=== PATIENT | male | born 1950 | race Caucasian/White ===

== ENCOUNTER 2018-07-24 07:42 | Day surgery (SDC) | payer MEDICARE ==
[2018-07-21 15:41] VITALS: BMI 28.6
[2018-07-24 08:01] LABS: Hemoglobin 15.5 g/dL (14.0-18.0); Mean Corpuscular HGB CONC 32.5 g/dL (32.0-36.0); Mean Corpuscular Hemoglobin 29.5 pg (27.0-31.0); Mean Corpuscular Volume 90.8 fL (78.0-98.0); Mean Platelet Volume 9.5 fL (7.4-10.4); Platelet Count 156 thou/uL (130-400); RBC Distribution Width 12.3 % (11.5-14.5); Red Blood Cell (RBC) Count 5.25 mill/uL (4.70-6.10); White Blood Cell (WBC) Count 13.9 thou/uL (4.8-10.8)
[2018-07-24 08:10] LABS: INR-International Normal Ratio 1.2; PTT 28.8 SEC (22.9-36.1); Prothrombin Time 15.1 SEC (12.0-14.7)
[2018-07-24] MEDS ORDERED: Fentanyl 100 MCG/2 ML VIAL ONE (09:42)
[2018-07-24] MEDS ORDERED: Midazolam HCl 2 mg/2 ml Vial ONE (09:42)
[2018-07-24] MEDS ORDERED: Sodium Bicarbonate 2.5 MEQ/5 ML VIAL ONE (09:43)
--- NOTE | 2018-07-24 13:12 | CT ---
NONCONTRAST ENHANCED CT GUIDED LIVER BIOPSY: History: 67-year-old male with multiple hepatic lesions. FINDINGS: Precontrast enhanced CT images demonstrate numerous hypodense lesions throughout the liver parenchyma . By MRI there are high density lesions in the left hepatic lobe. The overlying skin was prepped and draped in the usual sterile manner. A 1% Lidocaine solution was us ed to anesthetize the overlying soft tissues. A small dermatomy was made. An outer 17 gauge needle wa s placed into the left hepatic lobe. Four 18 gauge core biopsies obtained. Specimen sent to pathology . Initial microscopic evaluation suggested the presence of liver with adjacent areas of atypical cell s. Specimen given to pathology. Post biopsy gel foam pledget was introduced into the biopsy tract. No complications encountered durin g the course of the exam. IMPRESSION: Successful CT guided left hepatic lobe biopsy. POS: JOVON
[2018-07-24 14:37] VITALS: BP 119/79; TEMP 98.1
== END 2018-07-24 11:35 | disposition home or self-care (01) ==
LOC: ULT 07:42
PROVIDERS: ATTEND Radiology Neuroradiology
PROC: 0FB23ZX Excision of Left Lobe Liver, Percutaneous Approach, Diagnostic (ICD-10-PCS; principal; 2018-07-24)
DX: C22.7 Other specified carcinomas of liver (principal); I10 Essential (primary) hypertension; F20.9 Schizophrenia, unspecified; K22.70 Barrett's esophagus without dysplasia; E78.00 Pure hypercholesterolemia, unspecified; M19.90 Unspecified osteoarthritis, unspecified site; B19.20 Unspecified viral hepatitis C without hepatic coma; Z87.891 Personal history of nicotine dependence; Z79.899 Other long term (current) drug therapy; Z98.890 Other specified postprocedural states
CPT/HCPCS: 36415; 47000; 77012; 85027; 85610; 85730; 88307; 88333; 88334; 88341; 88342; J2250; J3010

== ENCOUNTER 2018-08-07 11:00 | Outpatient (CLI) | payer MEDICARE ==
[~2018-08-07 11:00] MED LIST: Iopamidol 370 76% 100 ML VIAL ONE
--- NOTE | 2018-08-07 14:17 | CT ---
CT CHEST WITH CONTRAST CT ABDOMEN AND PELVIS WITHOUT CONTRAST CT ABDOMEN AND PELVIS WITH CONTRAST: Date: 08/07/18 HISTORY: Metastatic adenocarcinoma. COMPARISON: MRI from 07/18/18. FINDINGS: A few tree-in-bud opacities posterior segment right upper lobe have an infectious appearance. 3.0 mm nodule posterior segment right upper lobe, series 6, image 36, and series 6, image 39. There is also a 3.0 mm nodule within the anterior segment right upper lobe, axial image 49. There is a 4.0 mm nodule in the anterior segment of right lower lobe, axial image 80. There is a 4.0 mm nodule in the posterior segment of the right lower lobe, axial image 85. There is a spiculated nod ule in the medial base of right lower lobe, axial image 94, measuring up to 1.0 cm. There is a 4.0 mm nodule in the medial basal left lower lobe, axial image 86. There is a 4.0 mm nodul e in the anterior segment of the left lower lobe, series 6, image 85. There is a 4.0 mm nodule in the superior segment of the left lower lobe, axial image 79. There is a 5.0 mm nodule in the superior li ngula, axial image 64. There is a 4.0 mm nodule in the anterior left upper lobe, axial image 26. There is a segmental embolus within the posterior base of right lower lobe. There are innumerable hep atic metastases. Index lesion hepatic segment 8 at the dome measures up to 2.7 cm, previously 1.0 cm. A second index lesion within hepatic segment IVb abutting the capsule measures 12.0 mm, previously 5 .0 mm. Soft tissue mass on the uncinate process measures up to 3.9 cm, previously up to 2.7 cm. This mass julien rrounds the superior mesenteric artery and abuts the base of the caudad margin of the celiac trunk. Gallbladder mildly distended. There are abnormal red hepatis lymph nodes, including a precaval lymp h node, which measures up to 1.6 cm, previously 1.2 cm. Spleen is mildly enlarged. Right renal cyst and left renal cysts are similar. Aortic contour is nonaneurysmal. No suspicious osteolytic or osteoblastic metastasis. IMPRESSION: 1. Right lower lobe segmental pulmonary embolus. 2. Interval enlargement of the pancreatic mass as described. 3. Increase in size of hepatic metastatic disease. 4. Innumerable small nodules throughout the lungs, largest in right lower lobe, medial basal segment , measuring 1.0 cm with spiculations, suggesting metastatic disease. Findings called to Jesus Angeles at 1158 hours on 08/07/18. CODE CR. POS: OSITO
== END 2018-08-07 11:01 | disposition home or self-care (01) ==
LOC: BICCT 11:00
PROVIDERS: ATTEND Internal Medicine Hematology & Oncology
DX: C25.7 Malignant neoplasm of other parts of pancreas (principal); C78.7 Secondary malignant neoplasm of liver and intrahepatic bile duct; I26.99 Other pulmonary embolism without acute cor pulmonale; R91.8 Other nonspecific abnormal finding of lung field; K86.9 Disease of pancreas, unspecified
CPT/HCPCS: 71260; 74178; 82565

== ENCOUNTER 2018-08-07 12:05 | Outpatient (CLI) | payer MEDICARE ==
[2018-08-07 13:44] LABS: Hemoglobin 15.7 g/dL (14.0-18.0); Mean Corpuscular HGB CONC 32.1 g/dL (32.0-36.0); Mean Corpuscular Hemoglobin 29.7 pg (27.0-31.0); Mean Corpuscular Volume 92.5 fL (78.0-98.0); Platelet Count 131 thou/uL (130-400); RBC Distribution Width 12.7 % (11.5-14.5); Red Blood Cell (RBC) Count 5.31 mill/uL (4.70-6.10); White Blood Cell (WBC) Count 15.1 thou/uL (4.8-10.8)
[2018-08-07 13:55] LABS: Anion Gap 18 mmol/L (10-20); BUN (Urea Nitrogen) 21 mg/dL (8.4-25.7); Calc. Creatinine Clearance 0 mL/min (70-130); Calcium 9.2 mg/dL (7.8-10.44); Carbon Dioxide 26 mmol/L (23-31); Chloride 95 mmol/L (98-107); Estimated GFR-MDRD 52; Glucose 95 mg/dL (80-115); Potassium 3.9 mmol/L (3.5-5.1); Sodium 135 mmol/L (136-145)
[2018-08-07 14:39] LABS: Band 11 % (5-11); Eosinophils 1 % (0-10); Lymphocytes 3 % (21-51); MDiff Complete? YES; Monocytes 9 % (0-10); Neutrophil 73 % (42-75); Platelet Morphology Comment Appears Adequate; RBC Morphology Normal; Reactive Lymphocytes 2 % (0-10)
== END 2018-08-07 12:06 | disposition home or self-care (01) ==
LOC: LABBT 12:05
PROVIDERS: ATTEND Surgery
DX: Z01.818 Encounter for other preprocedural examination (principal); C80.1 Malignant (primary) neoplasm, unspecified
CPT/HCPCS: 71260; 74178; 80048; 82565; 85025; 93005; 93010; Q9967

== ENCOUNTER 2018-08-11 08:31 | Day surgery (SDC) | payer MEDICARE ==
[2018-08-07 12:43] VITALS: BMI 26.7
[2018-08-11] MEDS ORDERED: Bupivacaine/Epinephrine 0.25% 30 ML VIAL ONE (09:35)
[2018-08-11] MEDS ORDERED: Lidocaine 2% PF 5 ML VIAL ONE (09:35)
[2018-08-11] MEDS ORDERED: Fentanyl 100 MCG/2 ML VIAL ONE ×3 (09:36→11:36)
[2018-08-11] MEDS ORDERED: HYDROcodone/Acetaminophen 5/325 mg Tablet ONE (12:44)
--- NOTE | 2018-08-11 13:15 | RAD ---
AP CHEST: HISTORY: MediPort placement. FINDINGS: There is a MediPort-type catheter in place. The tip overlies the SVC and appears in adequate positio n. The lungs are clear. No pneumothorax, infiltrate, effusion, or other acute process seen. IMPRESSION: No acute finding. POS: [facility]
[2018-08-11] MEDS ORDERED: PROPOFOL 200 MG/20 ML VIAL ONE (13:38)
[2018-08-11] MEDS ORDERED: Dexamethasone 20 MG/5 ML VIAL ONE (13:38)
[2018-08-11] MEDS ORDERED: Ondansetron PF 4 MG/2 ML Vial ONE (13:38)
--- NOTE | 2018-08-14 11:23 | OP ---
DATE OF PROCEDURE: 08/11/2018 PROCEDURE PERFORMED: Right internal jugular MediPort placement with ultrasound and fluoroscopy guidance. PREOPERATIVE DIAGNOSIS: Metastatic adenocarcinoma of unclear primary. POSTOPERATIVE DIAGNOSIS: Metastatic adenocarcinoma of unclear primary. HISTORY: Mr. Magallon is a 67-year-old man with metastatic adenocarcinoma of unknown origin, felt likely to be upper GI based on pathology. He is going to be undergoing palliative chemotherapy and needs MediPort placement for this. OPERATIVE PROCEDURE IN DETAIL: After informed consent was obtained and appropriate preoperative antibiotics administered, the patient was taken to the operating room and placed in supine position and monitored anesthesia care was administered. The patient was then placed in Trendelenburg position and the right internal jugular vein accessed Under ultrasound guidance easily on the first attempt with excellent flow of dark venous nonpulsatile blood. A wire threaded easily and was confirmed to be in the superior vena cava by fluoroscopy. Additional local anesthesia was infused to the skin and subcutaneous tissues of the right neck and chest. A skin incision was made over the right chest and a subcutaneous pocket developed inferiorly. A Mediport was obtained and confirmed to fit in the subcutaneous pocket. This was secured inferiorly to the pectoralis fascia with a Prolene suture, which was clamped but not tied. The tubing was then clamped at the distal and then tunneled from this incision to the right IJ access site. The dilator and sheath were then placed over the wire and the dilator and wire removed, leaving the sheath in place. The clamped MediPort tubing was tunneled through the sheath, which was then split and removed, leaving the MediPort tubing in place. The tubing was adjusted until the tip was confirmed by fluoroscopy to be in the superior vena cava just above the atrium. The tubing was clamped at the skin level and cut and the tubing secured to the port, which was then placed in the subcutaneous pocket. The previously placed suture was secured and 2 additional sutures were placed to fix the port in place within the pocket. The port was aspirated with the Erwin needle and had excellent flow of dark venous nonpulsatile blood and easily flushed without resistance. The subcutaneous tissues were closed with a running Monocryl suture, following which the skin was closed with a running subcuticular Monocryl suture. Dermabond dressings were placed . The course of the catheter was confirmed by fluoroscopy to be smooth, with th tip appropriately located in the superior vena cava. The patient was taken back to the day stay unit in good condition. Estimated blood loss was minimal. There were no complications. There were no specimens. Job ID: [id number] MTDD
== END 2018-08-11 13:20 | disposition home or self-care (01) ==
LOC: SDC 08:31
PROVIDERS: ATTEND Surgery
PROC: 0JH63WZ Insertion of Totally Implantable Vascular Access Device into Chest Subcutaneous Tissue and Fascia, Percutaneous Approach (ICD-10-PCS; principal; 2018-08-11)
DX: C80.1 Malignant (primary) neoplasm, unspecified (principal); M19.90 Unspecified osteoarthritis, unspecified site; I10 Essential (primary) hypertension; F32.9 Major depressive disorder, single episode, unspecified; F20.9 Schizophrenia, unspecified; Z87.891 Personal history of nicotine dependence; Z79.899 Other long term (current) drug therapy
CPT/HCPCS: 36561; 71045; C1788; J1100; J1642; J2001; J2405; J2704; J3010

== ENCOUNTER 2018-08-25 15:07 | Inpatient (IN) | payer MEDICARE ==
[2018-08-25 15:59] LABS: #Lymphocytes 0.6 thou/uL (1.20-3.40); #Monocytes 0.5 thou/uL (0.11-0.59); #Neutrophils 15.4 thou/uL (1.40-6.50); %Eosinophils 0.2 % (0.0-10.0); %Lymphocytes 3.7 % (21.0-51.0); %Monocytes 2.9 % (0.0-10.0); %Neutrophils 93.2 % (42.0-75.0); Hemoglobin 15.9 g/dL (14.0-18.0); Mean Corpuscular HGB CONC 32.3 g/dL (32.0-36.0); Mean Corpuscular Hemoglobin 29.7 pg (27.0-31.0); Mean Corpuscular Volume 92.1 fL (78.0-98.0); Mean Platelet Volume 10.5 fL (7.4-10.4); Platelet Count 153 thou/uL (130-400); RBC Distribution Width 13.9 % (11.5-14.5); Red Blood Cell (RBC) Count 5.37 mill/uL (4.70-6.10); White Blood Cell (WBC) Count 16.5 thou/uL (4.8-10.8)
[2018-08-25 16:20] LABS: ALT (SGPT) 66 U/L (8-55); AST (SGOT) 181 U/L (5-34); Albumin 3.1 g/dL (3.4-4.8); Alkaline Phosphatase 363 U/L (40-150); Anion Gap 16 mmol/L (10-20); BUN (Urea Nitrogen) 68 mg/dL (8.4-25.7); Bilirubin, Total 8.4 mg/dL (0.2-1.2); Calc. Creatinine Clearance 0 mL/min (70-130); Calcium 8.5 mg/dL (7.8-10.44); Carbon Dioxide 25 mmol/L (23-31); Chloride 94 mmol/L (98-107); Estimated GFR-MDRD 27; Glucose 138 mg/dL (80-115); Protein, Total 6.1 g/dL (5.8-8.1); Sodium 131 mmol/L (136-145)
[2018-08-25] MEDS ORDERED: Ketorolac Tromethamine 60 MG/2 ML VIAL ONE (16:58)
[2018-08-25] MEDS ORDERED: Guaifenesin DM 100-10/5 ML UDCUP PO PRN (18:23)
[2018-08-25] MEDS ORDERED: Senokot S 8.6-50 MG TAB PO PRN (18:23)
[2018-08-25] MEDS ORDERED: Acetaminophen 325 MG TAB PO PRN (18:23)
[2018-08-25] MEDS ORDERED: Ondansetron PF 4 MG/2 ML Vial IVP PRN (18:23)
[2018-08-25] MEDS ORDERED: Albumin 25% 25 GM/100 ML BOT IVPB SCH (19:00)
[2018-08-25] MEDS: Sodium Chloride 0.9% 1,000 ML IV SCH (20:40)
[2018-08-25] MEDS: Gabapentin 300 MG CAP PO SCH (20:49)
[2018-08-25 21:00] VITALS: BMI 26.2
--- NOTE | 2018-08-25 21:01 | HP ---
REASON FOR ADMISSION: Acute kidney injury, severe dehydration, and acute metabolic encephalopathy. HISTORY OF PRESENTING ILLNESS: The patient was brought to emergency room after his brother called EMS when he found him on the toilet seat for more than 3 hours at home. He was too sick and weak appearing. He could not physically get up. He was also wheezing and was very pale. He had also noticed increased yellowish discoloration of his eye. The brother lives in [place], [place]. The patient lives in [place]. He had actually come to take him to his house as he has advanced pancreatic carcinoma, which was diagnosed on the with a liver biopsy from metastasis. The plan was to go for palliative chemo from next week with Dr. Jesus Angeles. On arrival here, the patient had BUN of 68, creatinine 2.4, total bilirubin of 8.4, and elevated LFTs. He is currently awake and responding well to verbal questions. He is lethargic otherwise. PAST MEDICAL AND SURGICAL HISTORY: History of pancreatic cancer stage IV with METS to liver, hypertension, MediPort placement, schizophrenia, and wisdom tooth removal. Pulmonary embolus diagnosed on 08/07/2018, on Xarelto. He has also lost 40 pounds in the last 2 months. CURRENT MEDICATIONS: The patient is on: 1. Abilify 30 mg p.o. daily. 2. Gabapentin 300 mg p.o. three times daily. 3. Xarelto for history of PE, diagnosed on the of last month. 4. Ultram p.r.n. 5. Meloxicam p.r.n. 6. Lasix 20 mg daily. 7. Lovastatin 20 mg daily. 8. Flomax 0.4 mg daily. ALLERGIES: NO KNOWN DRUG ALLERGIES. PERSONAL HISTORY: Does not abuse alcohol or drugs. No history of smoking. FAMILY HISTORY: Mother of breast cancer and its complications at the age of 58 years. Father at the age of 83 years. He has had history of heart failure. CODE STATUS: Full. POWER OF WIRE DRAWING MACHINE OPERATOR: His brother, Mr. Sherita Urbano, number to reach him is [phone]. REVIEW OF SYSTEMS: CONSTITUTIONAL: Negative for weight loss or gain, ability to conduct usual activities. SKIN: Negative for rash, itching. EYES: Negative for double vision, pain. ENT/MOUTH: Negative for nose bleeding, neck stiffness, pain, tenderness. CARDIOVASCULAR: Negative for palpitations, dyspnea on exertion, orthopnea. RESPIRATORY: Negative for shortness of breath, wheezing, cough, hemoptysis, fever or night sweats. GASTROINTESTINAL: Negative for poor appetite, abdominal pain, heartburn, nausea , vomiting, constipation, or diarrhea. GENITOURINARY: Negative for urgency, frequency, dysuria, nocturia. MUSCULOSKELETAL: Negative for pain, swelling. NEUROLOGIC/PSYCHIATRIC: Negative for anxiety, depression. ALLERGY/IMMUNOLOGIC: Negative for skin rash, bleeding tendency. PHYSICAL EXAMINATION: GENERAL: The patient is a 67-year-old male, who is currently not in any acute distress. VITAL SIGNS: Blood pressure 106/74, pulse 106 per minute, respiratory rate 22 per minute, temperature 98.5 degrees Fahrenheit, and saturating 95% on room air. NECK: Supple. No elevated JVD. EYES: Severe icterus plus oral cavity, mucous membranes are dry. There are also microhemorrhages on the tongue, loss of rugae as well on the tongue. CARDIOVASCULAR SYSTEM: S1 and S2 heard. Murmur plus. RESPIRATORY SYSTEM: Air entry 1+ bilateral. Scattered rales in the infrascapular area. ABDOMEN: Soft. Bowel sounds heard. There is tenderness in the mid epigastric area. No rigidity or guarding. EXTREMITIES: There is severe edema of both lower extremities. No calf tenderness. VASCULAR SYSTEM: Peripheral pulses 1+ bilateral. No ischemic ulcerations or gangrene. CENTRAL NERVOUS SYSTEM: No gross focal deficits noted. The patient is lethargic, but oriented well. PSYCHIATRIC SYSTEM: The patient's mood is euthymic. No obvious hallucinations or delusions. LABORATORY DATA: Sodium 131, BUN 68 and creatinine 2.4, these were 21 and 1.3 on the 07 of August. Serum glucose 138, total bilirubin 8.4, AST 181, ALT 66, alkaline phosphatase 363, albumin is 3.1. White count of 16, hemoglobin and hematocrit of 15 and 49, and platelet count 153, with 93% neutrophils. CLINICAL IMPRESSION AND PLAN: The patient will be admitted to medical or Oncology floor for acute kidney injury, severe dehydration, deconditioning, worsening jaundice with history of stage IV pancreatic cancer. We will place him on albumin infusions q.6 hourly x5 doses. The patient has anasarca as well. He is intravascularly depleted. He will need diuresis at some point. His overall prognosis is very poor. I have discussed his findings with brother at bedside. He is clearly aware that if his renal function and liver enzymes do not recede by tomorrow, it may be all due to his pancreatic cancer with obstructive cholestasis. We will continue his Abilify and Neurontin as before along with Flomax. We will continue his IV fluid 120 mL per hour of sodium chloride for a total of 1 L and stop after that. We will try to wear a BOZENA hose for massive lower extremity edema to prevent blistering. If he does not tolerate, this will be removed. If the patient were to worsen by tomorrow, Palliative Care consultation will be requested. Job ID: [id number] MTDD
--- NOTE | 2018-08-25 21:34 | RAD ---
AP VIEW CHEST: 08/25/18 HISTORY: Anasarca. Evaluate for congestion. AP view chest obtained on 08/25/18. Comparison made to previous exam from 08/11/18. AP view chest demonstrates a right jugular Mediport catheter in place. Distal tip overlying the SVC. The lungs are well aerated. No evidence of active intrathoracic disease seen. No evidence of effusion s, pneumonia or pneumothorax seen. No evidence of pulmonary edema seen. IMPRESSION: Unremarkable AP view chest. POS: [facility]
[2018-08-25] MEDS ORDERED: Enoxaparin Sodium 100 MG/ML SYRINGE SC SCH (22:00)
[2018-08-25 22:14] LABS: PTT 56.8 SEC (22.9-36.1); Prothrombin Time 95.1 SEC (12.0-14.7)
[2018-08-25 22:17] LABS: INR-International Normal Ratio 12.7
[2018-08-26] MEDS: Sodium Chloride 0.9% 1,000 ML IV SCH (00:35)
[2018-08-26] MEDS: Albumin 25% 25 GM/100 ML BOT IVPB SCH ×4 (02:59→20:12)
[2018-08-26] MEDS: traMADol HCl 50 MG TAB PO PRN ×3 (03:28→17:39)
[2018-08-26 06:41] LABS: Anion Gap 14 mmol/L (10-20); BUN (Urea Nitrogen) 63 mg/dL (8.4-25.7); Calc. Creatinine Clearance 49 mL/min (70-130); Calcium 8.5 mg/dL (7.8-10.44); Carbon Dioxide 26 mmol/L (23-31); Chloride 95 mmol/L (98-107); Estimated GFR-MDRD 33; Glucose 89 mg/dL (80-115); Potassium 3.5 mmol/L (3.5-5.1); Sodium 131 mmol/L (136-145)
[2018-08-26 06:49] LABS: #Eosinphils 0.1 thou/uL (0.0-0.7); #Lymphocytes 0.7 thou/uL (1.20-3.40); #Monocytes 0.6 thou/uL (0.11-0.59); #Neutrophils 10.5 thou/uL (1.40-6.50); %Basophils 0.2 % (0.0-1.0); %Eosinophils 0.5 % (0.0-10.0); %Lymphocytes 5.5 % (21.0-51.0); %Neutrophils 88.9 % (42.0-75.0); Hemoglobin 14.1 g/dL (14.0-18.0); Mean Corpuscular HGB CONC 32.4 g/dL (32.0-36.0); Mean Corpuscular Hemoglobin 29.9 pg (27.0-31.0); Mean Corpuscular Volume 92.2 fL (78.0-98.0); Mean Platelet Volume 10.5 fL (7.4-10.4); Platelet Count 115 thou/uL (130-400); Platelet Morphology Comment Appears Decreased; RBC Distribution Width 13.7 % (11.5-14.5); RBC Morphology Normal; White Blood Cell (WBC) Count 11.8 thou/uL (4.8-10.8)
[2018-08-26] MEDS: Gabapentin 300 MG CAP PO SCH ×2 (07:59→20:12)
[2018-08-26] MEDS: Tamsulosin HCl 0.4 MG CAP PO SCH (07:59)
[2018-08-26 08:52] LABS: ALT (SGPT) 56 U/L (8-55); AST (SGOT) 163 U/L (5-34); Albumin 3.5 g/dL (3.4-4.8); Alkaline Phosphatase 306 U/L (40-150); Bilirubin, Direct 6.2 mg/dL (0.1-0.3); Protein, Total 5.7 g/dL (5.8-8.1)
[2018-08-26] MEDS ORDERED: Enoxaparin Sodium 30 MG/0.3 ML SYRINGE SC SCH (09:00)
[2018-08-26] MEDS ORDERED: Prevnar 13-Val Conj/PF 0.5 ML SYRINGE IM ONE (09:00)
[2018-08-26] MEDS ORDERED: Acetaminophen 325 MG TAB PO PRN (10:54)
--- NOTE | 2018-08-26 12:18 | CON ---
DATE OF CONSULTATION: HISTORY OF PRESENT ILLNESS: Mr. Magallon is a 67-year-old white male, who was seen at the ER due to confusion secondary to presumed acute metabolic encephalopathy. He was also found to be in acute kidney injury from prerenal azotemia. We are now being consulted for further management of this acute kidney injury. He has been empirically volume repleted with some degree of renal improvement. His brother found him at home yesterday at the toilet seat for several hours. He was confused. He was said to be wheezing at that time. Due to the worsening mental status, he was brought to the ER. Of interest, this patient has a history of pancreatic cancer stage 4 with metastasis. REVIEW OF SYSTEMS: Positive for confusion. Positive for abdominal discomfort. No nausea. Decreased appetite. Decreased energy level. No dysuria. No urinary frequency. Positive for weight loss. HOME MEDICATIONS: Included; 1. Abilify 30 mg tab daily. 2. Gabapentin 300 mg p.o. t.i.d. 3. Xarelto. 4. Ultram p.r.n. 5. Meloxicam p.r.n. 6. Lasix 20 mg daily. 7. Lovastatin 20 mg daily. 8. Flomax 0.4 mg daily. PAST MEDICAL HISTORY: 1. History of pancreatic cancer with metastasis. 2. He has schizophrenia. 3. He is status post pulmonary embolism. 4. Hyperlipidemia. 5. BPH. PAST SURGICAL HISTORY: Includes history of MediPort placement and history of liver biopsy. SOCIAL HISTORY: The patient is single. No children. Lives in [place]. Retired director of construction. Education, GED. Currently, no smoking or alcohol intake. No IV drug abuse. He lives alone. ALLERGIES: NONE. TRAUMA: None. IMMUNIZATION: Up-to-date. HOSPITALIZATIONS: Please see past medical history. FAMILY HISTORY: No family history of ESRD. PHYSICAL EXAMINATION: VITAL SIGNS: Blood pressure 115/77, heart rate 65, respiratory rate 18, temperature 97.4, and pulse ox 97%. GENERAL: Noted to be awake, mildly confused, not in overt distress. HEENT: Icteric sclerae. NECK: No neck mass. No JVD. LUNGS: Clear breath sounds. HEART: Normal sinus rhythm. No murmur. No gallops. No rubs. ABDOMEN: Globular, soft, and nontender. EXTREMITIES: Trace edema. NEUROLOGIC: Intermittently confused. Moving all extremities. Can answer my questions appropriately. LABORATORY DATA: Laboratories of August 26, 2018, white count 11.8 and hemoglobin 14.1. Sodium 131, potassium 3.5, chloride 95, carbon dioxide 26, BUN 63, and creatinine 2.02. August 25, 2018, creatinine 2.44. June 22, 2018, creatinine was 1.0. AST is noted at 163, ALT is 56, bilirubin 8.0, and albumin 3.5. Chest x-ray of August 25, 2018, there is no overt CHF. ASSESSMENT AND PLAN: Acute kidney injury consider hemodynamically-mediated renal dysfunction. The patient has history of weight loss and of interest, has been taking NSAIDs at home. The decreased p.o. intake, weight loss, nausea, vomiting, and intake of NSAIDs may be contributing to the acute kidney injury. Please note there is already a slight improvement in renal function with gentle volume repletion. Continue current IV hydration. Please note, the patient has also received albumin infusion. We will continue to hold off the NSAIDs. At this point in time with the elevated liver function, I would also discontinue the simvastatin. Overall agree with current management. There is no indication for any dialytic intervention. Overall prognosis remains guarded with this patient. Job ID: [id number]
[2018-08-26] MEDS: Aripiprazole 15 MG TAB PO SCH (14:39)
[2018-08-26] MEDS ORDERED: Morphine 4 MG/ML VIAL SLOW IVP PRN (15:31)
--- NOTE | 2018-08-26 15:35 | PDOC.PN ---
- Subjective Encounter Start Date: 08/26/18 Encounter Start Time: 11:40 Subjective: awake, says he feels better -: has abd pain, no nausea - Objective Resuscitation Status - Order Detail: 08/25/18 18:23 Resuscitation Status Routine Resuscitation Status: DNAR: NO Resuscitation Discussed with: d/w , Juan brother and DYLON DANIELS Reviewed: Yes Vital Signs & Weight: Vital Signs (12 hours) Temp Pulse Resp BP Pulse Ox 08/26/18 08:00 97.4 F L 65 18 115/77 97 08/26/18 04:56 97.8 F 67 18 103/69 94 L Weight Weight 210 lb 5 oz I&O: 08/25/18 08/26/18 08/27/18 06:59 06:59 06:59 Intake Total 2077 240 Balance 2077 240 Result Diagrams: 08/26/18 05:47 08/26/18 05:47 Phys Exam - Physical Examination HEENT: PERRLA icterus+++ Neck: no JVD, supple Respiratory: no wheezing, no rales Cardiovascular: RRR, no significant murmur Gastrointestinal: soft, non-tender, positive bowel sounds Musculoskeletal: pulses present, edema present wearing curt hose Neurological: non-focal, moves all 4 limbs Psychiatric: A&O x 3 Dx/Plan (1) Pancreatic cancer metastasized to liver Code(s): C25.9 - MALIGNANT NEOPLASM OF PANCREAS, UNSPECIFIED; C78.7 - SECONDARY MALIG NEOPLASM OF LIVER AND INTRAHEPATIC BILE DUCT Status: Acute (2) Coagulopathy Status: Acute (3) MARLEY (acute kidney injury) Code(s): N17.9 - ACUTE KIDNEY FAILURE, UNSPECIFIED Status: Acute (4) Anasarca Code(s): R60.1 - GENERALIZED EDEMA Status: Acute (5) Schizoaffective disorder Code(s): F25.9 - SCHIZOAFFECTIVE DISORDER, UNSPECIFIED Status: Chronic Qualifiers: Schizoaffective disorder type: unspecified Qualified Code(s): F25.9 - Schizoaffective disorder, unspecified (6) Dehydration Code(s): E86.0 - DEHYDRATION Status: Acute (7) FTT (failure to thrive) in adult Status: Acute (8) Physical deconditioning Code(s): R53.81 - OTHER MALAISE Status: Acute (9) Dyslipidemia Code(s): E78.5 - HYPERLIPIDEMIA, UNSPECIFIED Status: Chronic (10) BPH (benign prostatic hyperplasia) Code(s): N40.0 - BENIGN PROSTATIC HYPERPLASIA WITHOUT LOWER URINRY TRACT SYMP Status: Chronic Qualifiers: Lower urinary tract symptom presence: symptoms absent Qualified Code(s): N40.0 - Benign prostatic hyperplasia without lower urinary tract symptoms - Plan d/w brother , Dr.Mark Angeles and Ivongil Mobley -: poor prognosis, not a candidate for any chemo now -: family have opted for hospice with snf, has medicare but no medicaid -: for help with placement near [place], -: gentle iv hydration, morphine * . Review of Systems - Medications/Allergies Allergies/Adverse Reactions: Allergies Allergy/AdvReac Type Severity Reaction Status Date / Time No Known Allergies Allergy Verified 07/21/18 15:34 Medications: Current Medications Acetaminophen (Tylenol) 650 mg PO Q8H PRN PRN Reason: Headache/Fever/Mild Pain (1-3) Albumin Human (Albumin 25%) 25 gm IVPB 0300,0900,1500,2100 [facility] Stop: 08/27/18 03:01 Last Admin: 08/26/18 14:39 Dose: 25 gm Aripipraz[facility] (Abilify) [facility] [place] Last Admin: 08/26/18 14:39 Dose: Not Given Gabapentin (Neurontin) 300 mg PO BID [facility] Last Admin: 08/26/18 07:59 Dose: 300 mg Guaifenesin/Dextromethorphan (Robitussin Dm) 15 ml PO Q4H PRN PRN Reason: Cough Ondansetron HCl (Zofran) 4 mg IVP Q6H PRN PRN Reason: Nausea/Vomiting Senna/Docusate Sodium (Senokot S) 2 tab PO BID PRN PRN Reason: Constipation Sodium Chloride (Flush - Normal Saline) 10 ml IVF PRN PRN PRN Reason: Saline Flush Tamsulosin HCl (Flomax) 0.4 mg PO QAM [facility] Last Admin: 08/26/18 07:59 Dose: 0.4 mg Tramadol HCl (Ultram) 50 mg PO Q6H PRN PRN Reason: Moderate Pain (4-6) Last Admin: 08/26/18 11:05 Dose: 50 mg
--- NOTE | 2018-08-26 16:33 | CON ---
DATE OF CONSULTATION: REASON FOR CONSULT: Metastatic adenocarcinoma to the liver. HISTORY OF PRESENT ILLNESS: Mr. Magallon is a 67-year-old gentleman with a history of hepatitis C, who was recently diagnosed with metastatic adenocarcinoma to the liver. He had been having pain in his abdomen for at least a month. He had lost over 30 pounds since beginning of June. He saw Dr. Hernandez who performed a liver biopsy, which confirmed metastatic adenocarcinoma of GI origin , gastric versus pancreatic versus colon. He recently was also diagnosed with pulmonary embolism and placed on Xarelto. The patient has a 20 pack-year history of smoking. He drinks 30 pack of beer that last couple of weeks. He stopped drinking several years ago and has been on Abilify for schizophrenia. He had a history of HCV and was cured by Tobin. The patient lives alone in [place] and has a brother who lives in [place]. He was to start palliative chemotherapy in the next several weeks. He recently had a MediPort placed. Yesterday, his brother found him sitting on the toilet, unable to get up. He states he has been sitting there for over 3 hours. He was brought to the emergency room for evaluation. In the ER, he had a sodium of 131, BUN of 68 and creatinine of 2.44. His bilirubin was 8.4. AST, ALT, and alkaline phosphatase were all elevated. He has been hydrated and is feeling better. He does complain of pain in his upper right quadrant of his abdomen. PAST MEDICAL HISTORY: 1. Gastroesophageal reflux disease with esophagitis. 2. Hypertension. 3. Arthritis. 4. Hepatitis C. 5. Schizophrenia. PAST SURGICAL HISTORY: [place] tooth extraction, liver biopsy, MediPort placement. ALLERGIES: NO KNOWN DRUG ALLERGIES. HOME MEDICATIONS: 1. Abilify 30 mg daily. 2. Lasix 40 mg daily. 3. Gabapentin t.i.d. 4. Lovastatin daily. 5. Meloxicam daily. 6. Aleve p.r.n. 7. Prilosec 20 mg daily. 8. Zofran p.r.n. 9. Pentazocine and naloxone daily. 10. Xarelto daily. 11. Flomax daily. 12. Tramadol p.r.n. FAMILY HISTORY: Father had CHF. Mother from breast cancer. SOCIAL HISTORY: Single, lives alone, 20 pack-year smoking. Former alcohol use. REVIEW OF SYSTEMS: Positive for weight loss, fatigue, and abdominal pain. Otherwise negative. PHYSICAL EXAMINATION: VITAL SIGNS: Temperature is 97.4, pulse is 65, respiratory rate 18, BP is 115/ 77. He is 94% on room air. GENERAL: Well-developed, well-nourished male, in no acute distress. HEENT: Normocephalic, atraumatic. Pupils equal and reactive to light. NECK: Supple. Sclerae are icteric. CV: Regular rate and rhythm. LUNGS: Clear. ABDOMEN: Slightly tender in the right upper quadrant. Bowel sounds are positive. EXTREMITIES: No clubbing, cyanosis, or edema. SKIN: Jaundice. HEMATOLOGICAL: No petechiae or purpura. NEUROLOGICAL: Nonfocal. PSYCH: The patient is alert and oriented. PERTINENT LABS AND X-RAYS: Current WBCs 11.8, hemoglobin 14.1, hematocrit 43.4, platelet count is 115,000. He has 89% neutrophils, 5% lymphocytes. PT is 95.1 , INR is 12.7, PTT is 56.8. Sodium is 131, potassium 3.5, chloride 95, CO2 is 26, BUN is 63, creatinine is 2.02, calcium is 8.5, bilirubin is 8.0, AST is 163, ALT is 56, alkaline phosphatase is 306. Serum total protein 5.7, albumin 3.5, globulin 3. ASSESSMENT: 1. Metastatic adenocarcinoma. 2. Hyperbilirubinemia. 3. Acute kidney injury. 4. Deconditioning. 5. Schizophrenia. 6. Coagulopathy. 7. Recent pulmonary embolism. DISCUSSION: The patient's brother was at bedside during discussion with the patient. We were unable to give palliative chemotherapy with the increase in both his bilirubin and creatinine. Recommend that he focus on quality of life and comfort care. Both the patient and family agree to hospice. I will consult corrections caseworker for assistance. We will recheck coags in the morning. Hold Xarelto and MeMeMenox for now. Case discussed with Dr. Angeles and Lo. Thank you for the consult. We will follow his course closely. Job ID: [id number] [facility]
[2018-08-26] MEDS ORDERED: Simvastatin 5 MG TAB PO SCH (17:00)
[2018-08-27] MEDS: traMADol HCl 50 MG TAB PO PRN ×4 (00:19→20:56)
[2018-08-27] MEDS: Albumin 25% 25 GM/100 ML BOT IVPB SCH (02:40)
[2018-08-27 07:25] LABS: Anion Gap 18 mmol/L (10-20); BUN (Urea Nitrogen) 56 mg/dL (8.4-25.7); Calc. Creatinine Clearance 60 mL/min (70-130); Calcium 8.9 mg/dL (7.8-10.44); Carbon Dioxide 22 mmol/L (23-31); Chloride 94 mmol/L (98-107); Estimated GFR-MDRD 43; Glucose 82 mg/dL (80-115); Potassium 3.4 mmol/L (3.5-5.1); Sodium 131 mmol/L (136-145)
[2018-08-27] MEDS: Gabapentin 300 MG CAP PO SCH ×2 (08:09→20:56)
[2018-08-27] MEDS: Aripiprazole 15 MG TAB PO SCH (08:09)
[2018-08-27] MEDS: Tamsulosin HCl 0.4 MG CAP PO SCH (08:09)
[2018-08-27 08:58] LABS: INR-International Normal Ratio 14.5; Prothrombin Time 105.9 SEC (12.0-14.7)
--- NOTE | 2018-08-27 12:29 | PDOC.PN ---
- Subjective Encounter Start Date: 08/27/18 Encounter Start Time: 10:20 Subjective: awake, is sitting in chair -: not in distress, abd pain is there but controlled - Objective Resuscitation Status - Order Detail: 08/25/18 18:23 Resuscitation Status Routine Resuscitation Status: DNAR: NO Resuscitation Discussed with: d/w , Juan brother and DYLON DANIELS Reviewed: Yes Vital Signs & Weight: Vital Signs (12 hours) Temp Pulse Resp BP Pulse Ox 08/27/18 08:48 97.4 F L 92 20 111/74 99 Weight Weight 210 lb 5 oz I&O: 08/26/18 08/27/18 08/28/18 06:59 06:59 06:59 Intake Total 2077 1160 Balance 2077 1160 Result Diagrams: 08/26/18 05:47 08/27/18 06:04 Phys Exam - Physical Examination HEENT: PERRLA icterus+++ Neck: no JVD, supple Respiratory: no wheezing, no rales Cardiovascular: RRR, no significant murmur Gastrointestinal: soft, positive bowel sounds Musculoskeletal: pulses present, edema present Neurological: non-focal, moves all 4 limbs Dx/Plan (1) Pancreatic cancer metastasized to liver Code(s): C25.9 - MALIGNANT NEOPLASM OF PANCREAS, UNSPECIFIED; C78.7 - SECONDARY MALIG NEOPLASM OF LIVER AND INTRAHEPATIC BILE DUCT Status: Acute (2) Coagulopathy Status: Acute (3) MARLEY (acute kidney injury) Code(s): N17.9 - ACUTE KIDNEY FAILURE, UNSPECIFIED Status: Acute (4) Anasarca Code(s): R60.1 - GENERALIZED EDEMA Status: Acute (5) Schizoaffective disorder Code(s): F25.9 - SCHIZOAFFECTIVE DISORDER, UNSPECIFIED Status: Chronic Qualifiers: Schizoaffective disorder type: unspecified Qualified Code(s): F25.9 - Schizoaffective disorder, unspecified (6) Dehydration Code(s): E86.0 - DEHYDRATION Status: Resolved (7) FTT (failure to thrive) in adult Status: Acute (8) Physical deconditioning Code(s): R53.81 - OTHER MALAISE Status: Acute (9) Dyslipidemia Code(s): E78.5 - HYPERLIPIDEMIA, UNSPECIFIED Status: Chronic (10) BPH (benign prostatic hyperplasia) Code(s): N40.0 - BENIGN PROSTATIC HYPERPLASIA WITHOUT LOWER URINRY TRACT SYMP Status: Chronic Qualifiers: Lower urinary tract symptom presence: symptoms absent Qualified Code(s): N40.0 - Benign prostatic hyperplasia without lower urinary tract symptoms - Plan awaiting placement with hospice if insurance is ok -: d/w brother and patient, they want comfort care on discharge -: family aware of poor prognosis, has elevated lft's, icterus+++ -: encourage po intake, renal function is trending towards baseline -: continue abilify, flomax. Will dc zocor and reduce dose of neurontin * . Review of Systems - Medications/Allergies Allergies/Adverse Reactions: Allergies Allergy/AdvReac Type Severity Reaction Status Date / Time No Known Allergies Allergy Verified 07/21/18 15:34 Medications: Current Medications Acetaminophen (Tylenol) 650 mg PO Q8H PRN PRN Reason: Headache/Fever/Mild Pain (1-3) Aripiprazole (Abilify) 30 mg PO [facility] Last Admin: 08/27/18 08:09 Dose: 30 mg Gabapentin (Neurontin) 300 mg PO BID [facility] Last Admin: 08/27/18 08:09 Dose: 300 mg Guaifenesin/Dextromethorphan (Robitussin Dm) 15 ml PO Q4H PRN PRN Reason: Cough Morphine Sulfate (Morphine) 2 mg SLOW IVP Q4H PRN PRN Reason: Moderate Pain (4-6) Morphine Sulfate (Morphine) 4 mg SLOW IVP Q4H PRN PRN Reason: Moderate to Severe Pain (6-10) Ondansetron HCl (Zofran) 4 mg IVP Q6H PRN PRN Reason: Nausea/Vomiting Senna/Docusate Sodium (Senokot S) 2 tab PO BID PRN PRN Reason: Constipation Sodium Chloride (Flush - Normal Saline) 10 ml IVF PRN PRN PRN Reason: Saline Flush Tamsulosin [facility] ([facility]) [facility] Last Admin: 08/27/18 08:09 Dose: 0.4 mg Tramadol HCl (Ultram) 50 mg PO Q6H PRN PRN Reason: Moderate Pain (4-6) Last Admin: 08/27/18 06:16 Dose: 50 mg
--- NOTE | 2018-08-27 15:50 | PRG ---
DATE OF SERVICE: 08/27/2018 SUBJECTIVE: Mr. Magallon is a 67-year-old white male, who was seen for his acute kidney injury. He has history of pancreatic cancer. He has been having decreased p.o. intake. He was volume repleted. He was given crystalloids and colloids. He is feeling a little better today. Denies any chest pain or shortness of breath. OBJECTIVE: VITAL SIGNS: Blood pressure is 111/74, heart rate 92, respiratory rate 20, temperature 97.4, pulse ox 99%. GENERAL: He is noted to be awake, alert, comfortable, not in distress. SKIN: Adequate turgor. HEENT: He has pinkish conjunctivae. Anicteric sclerae. No neck mass. No carotid bruits. No JVD. CHEST: No deformities. LUNGS: Clear breath sounds. No wheezing. No crackles. HEART: Normal sinus rhythm. No murmurs, gallops, or rubs. ABDOMEN: Globular, soft, nontender, no masses. EXTREMITIES: No edema, no deformities. MEDICATIONS: Medications of August 27, 2018, was reviewed. LABORATORY DATA: August 27, 2018; sodium 131, potassium 3.4, chloride 94, carbon dioxide 22, BUN 56, creatinine 1.63, GFR 43 mL/minute, calcium 8.9, glucose 82. ASSESSMENT AND PLAN: 1. Acute kidney rybjyp-eihbjyptgiyuoxv-vvumaxys renal dysfunction. Creatinine is much improved with albumin infusion. Continue current management. Encouraged patient to increase p.o. intake. There is no indication for any dialysis intervention. For the moment, agree with current management, recheck basic metabolic panel in a.m. 2. Pancreatic cancer-consider Oncology consultation, has been made. The plan is to discuss further palliative chemotherapy. Our plan is to optimize the patient's medical condition. Job ID: [id number]
[2018-08-28] MEDS: traMADol HCl 50 MG TAB PO PRN ×3 (03:38→17:24)
[2018-08-28 06:07] LABS: Anion Gap 19 mmol/L (10-20); BUN (Urea Nitrogen) 60 mg/dL (8.4-25.7); Calc. Creatinine Clearance 53 mL/min (70-130); Calcium 8.9 mg/dL (7.8-10.44); Carbon Dioxide 24 mmol/L (23-31); Chloride 92 mmol/L (98-107); Estimated GFR-MDRD 37; Glucose 109 mg/dL (80-115); Potassium 3.9 mmol/L (3.5-5.1); Sodium 131 mmol/L (136-145)
[2018-08-28] MEDS: Tamsulosin HCl 0.4 MG CAP PO SCH (07:47)
[2018-08-28] MEDS: Gabapentin 300 MG CAP PO SCH ×2 (07:47→20:45)
[2018-08-28] MEDS: Aripiprazole 15 MG TAB PO SCH (07:47)
--- NOTE | 2018-08-28 10:02 | PRG ---
DATE OF SERVICE: 08/28/2018 SUBJECTIVE: Mr. Magallon is a 67-year-old white male, who was initially admitted for acute abdominal pain. He has a history of pancreatic cancer. He was found to be in acute kidney injury secondary to volume depletion. Empiric volume repletion with Colace was given with improvement of the renal function. No complaints today. I did note the creatinine was slightly high at 1.8 from yesterday of 1.6. No complaints of chest pain or shortness of breath. He tells me he is feeling better. His p.o. intake has improved. OBJECTIVE: VITAL SIGNS: Blood pressure 113/80, heart rate 81, respiratory rate 18, temperature 97.4, and pulse ox 100%. GENERAL: Awake, alert, supine, comfortable. SKIN: Adequate turgor. HEENT: He has a pinkish conjunctivae. Anicteric sclerae. NECK: No neck mass. No carotid bruits. No JVD. CHEST: No deformities. LUNGS: Clear breath sounds. No wheezing. No crackles. HEART: Normal sinus rhythm. No murmur. No gallops. No rubs. ABDOMEN: Globular, soft, and nontender. No masses. EXTREMITIES: No edema. No deformities. MEDICATIONS: Medications of August 28, 2018, was reviewed. LABORATORY DATA: Laboratories of August 28, 2018; potassium 3.9, sodium 131, chloride 92, carbon dioxide 24, BUN 60, creatinine 1.86, glucose 109, and calcium 8.9. ASSESSMENT AND PLAN: 1. Acute kidney injury - hemodynamically-mediated renal dysfunction. I will probably start normal saline at 125 mL/hour. No indication for any dialytic intervention. Case discussed at length with the patient and his brother. 2. Pancreatic cancer - Oncology following. For possible palliative chemotherapy ? Recheck basic metabolic panel and CBC in a.m. Job ID: [id number]
[2018-08-28] MEDS: Sodium Chloride 0.9% 1,000 ML IV SCH ×3 (11:19→20:47)
--- NOTE | 2018-08-28 12:05 | PDOC.PN ---
- Subjective Encounter Start Date: 08/28/18 Encounter Start Time: 10:15 Subjective: no nausea, is eating better -: awake, responds well to verbal stimuli - Objective Resuscitation Status - Order Detail: 08/25/18 18:23 Resuscitation Status Routine Resuscitation Status: DNAR: NO Resuscitation Discussed with: d/w , Juan brother and DYLON DANIELS Reviewed: Yes Vital Signs & Weight: Vital Signs (12 hours) Temp Pulse Resp BP Pulse Ox 08/28/18 08:00 97.4 F L 81 18 113/80 100 Weight Weight 210 lb 5 oz I&O: 08/27/18 08/28/18 08/29/18 06:59 06:59 06:59 Intake Total 1160 970 Balance 1160 970 Result Diagrams: 08/26/18 05:47 08/28/18 05:40 Phys Exam - Physical Examination HEENT: PERRLA, moist MMs Neck: no JVD, supple Respiratory: no wheezing, no rales Cardiovascular: RRR, no significant murmur Gastrointestinal: soft, positive bowel sounds Musculoskeletal: no edema, pulses present Neurological: non-focal, moves all 4 limbs Dx/Plan (1) Pancreatic cancer metastasized to liver Code(s): C25.9 - MALIGNANT NEOPLASM OF PANCREAS, UNSPECIFIED; C78.7 - SECONDARY MALIG NEOPLASM OF LIVER AND INTRAHEPATIC BILE DUCT Status: Acute (2) Coagulopathy Status: Acute (3) MARLEY (acute kidney injury) Code(s): N17.9 - ACUTE KIDNEY FAILURE, UNSPECIFIED Status: Acute (4) Anasarca Code(s): R60.1 - GENERALIZED EDEMA Status: Acute Comment: resolving (5) Schizoaffective disorder Code(s): F25.9 - SCHIZOAFFECTIVE DISORDER, UNSPECIFIED Status: Chronic Qualifiers: Schizoaffective disorder type: unspecified Qualified Code(s): F25.9 - Schizoaffective disorder, unspecified (6) Dehydration Code(s): E86.0 - DEHYDRATION Status: Resolved (7) FTT (failure to thrive) in adult Status: Acute (8) Physical deconditioning Code(s): R53.81 - OTHER MALAISE Status: Acute (9) Dyslipidemia Code(s): E78.5 - HYPERLIPIDEMIA, UNSPECIFIED Status: Chronic (10) BPH (benign prostatic hyperplasia) Code(s): N40.0 - BENIGN PROSTATIC HYPERPLASIA WITHOUT LOWER URINRY TRACT SYMP Status: Chronic Qualifiers: Lower urinary tract symptom presence: symptoms absent Qualified Code(s): N40.0 - Benign prostatic hyperplasia without lower urinary tract symptoms - Plan awaiting placement with hospice if he qualifies -: renal function is holding up -: continue curt hose for lower extr while upright -: on abilify, flomax, neurontin -: likely is not a candidate for palliative chemo * . Review of Systems - Medications/Allergies Allergies/Adverse Reactions: Allergies Allergy/AdvReac Type Severity Reaction Status Date / Time No Known Allergies Allergy Verified 07/21/18 15:34 Medications: Current Medications Acetaminophen (Tylenol) 650 mg PO Q8H PRN PRN Reason: Headache/Fever/Mild Pain (1-3) Last Admin: 08/28/18 05:59 Dose: 650 mg Aripiprazole (Abilify) 30 mg PO QAM [facility] Last Admin: 08/28/18 07:47 Dose: 30 mg Gabapentin (Neurontin) 300 mg PO BID [facility] Last Admin: 08/28/18 07:47 Dose: 300 mg Guaifenesin/Dextromethorphan (Robitussin Dm) 15 ml PO Q4H PRN PRN Reason: Cough Sodium Chloride (Normal Saline 0.9%) 1,000 mls @ 125 mls/hr IV .Q8H [facility] Last Admin: 08/28/18 11:19 Dose: 1,000 mls Morphine Sulfate (Morphine) 2 mg SLOW IVP Q4H PRN PRN Reason: Moderate Pain (4-6) Morphine Sulfate (Morphine) 4 mg SLOW IVP Q4H PRN PRN Reason: Moderate to Severe Pain (6-10) Ondansetron HCl (Zofran) 4 mg IVP Q6H PRN PRN Reason: Nausea/Vomiting Senna/Docusate Sodium (Senokot S) 2 tab PO BID PRN PRN Reason: Constipation Sodium Chloride (Flush - Normal Saline) 10 ml IVF PRN PRN PRN Reason: Saline Flush Tamsulosin [facility] ([facility]omax) [facility] [place] Last Admin: 08/28/18 07:47 Dose: 0.4 mg Tramadol HCl (Ultram) 50 mg PO Q6H PRN PRN Reason: Moderate Pain (4-6) Last Admin: 08/28/18 12:00 Dose: 50 mg
[2018-08-28] MEDS: Morphine 4 MG/ML VIAL SLOW IVP PRN ×2 (14:38→20:45)
[2018-08-29] MEDS: Sodium Chloride 0.9% 1,000 ML IV SCH ×2 (05:24→11:54)
[2018-08-29] MEDS: traMADol HCl 50 MG TAB PO PRN ×3 (05:34→20:03)
[2018-08-29 05:59] LABS: Anion Gap 17 mmol/L (10-20); BUN (Urea Nitrogen) 64 mg/dL (8.4-25.7); Calc. Creatinine Clearance 52 mL/min (70-130); Calcium 8.4 mg/dL (7.8-10.44); Carbon Dioxide 22 mmol/L (23-31); Chloride 93 mmol/L (98-107); Estimated GFR-MDRD 36; Glucose 100 mg/dL (80-115); Potassium 3.9 mmol/L (3.5-5.1); Sodium 128 mmol/L (136-145)
[2018-08-29 06:59] LABS: Band 16 % (5-11); Hemoglobin 15.4 g/dL (14.0-18.0); Lymphocytes 3 % (21-51); MDiff Complete? YES; Mean Corpuscular HGB CONC 31.7 g/dL (32.0-36.0); Mean Corpuscular Hemoglobin 29.2 pg (27.0-31.0); Mean Platelet Volume 10.3 fL (7.4-10.4); Monocytes 6 % (0-10); Neutrophil 75 % (42-75); Platelet Count 101 thou/uL (130-400); Platelet Morphology Comment Appears Decreased; RBC Distribution Width 14.1 % (11.5-14.5); Red Blood Cell (RBC) Count 5.29 mill/uL (4.70-6.10); White Blood Cell (WBC) Count 14.3 thou/uL (4.8-10.8)
[2018-08-29] MEDS: Gabapentin 300 MG CAP PO SCH ×2 (08:33→20:03)
[2018-08-29] MEDS: Tamsulosin HCl 0.4 MG CAP PO SCH ×3 (08:33→20:03)
[2018-08-29] MEDS: Aripiprazole 15 MG TAB PO SCH (08:33)
[2018-08-29] MEDS: Morphine 4 MG/ML VIAL SLOW IVP PRN ×2 (08:34→17:38)
--- NOTE | 2018-08-29 13:08 | PDOC.PN ---
- Subjective Encounter Start Date: 08/29/18 Encounter Start Time: 07:45 Subjective: awake, no sob -: urinated this am in his diaper, had trouble yesterda -: brother at bedside - Objective Resuscitation Status - Order Detail: 08/25/18 18:23 Resuscitation Status Routine Resuscitation Status: DNAR: NO Resuscitation Discussed with: d/w , Juan brother and DYLON DANIELS Reviewed: Yes Vital Signs & Weight: Vital Signs (12 hours) Temp Pulse Resp BP Pulse Ox 08/29/18 08:00 96 08/29/18 07:45 98.4 F 86 20 102/69 96 Weight Weight 210 lb 5 oz I&O: 08/28/18 08/29/18 08/30/18 06:59 06:59 06:59 Intake Total 970 3131 Balance 970 3131 Result Diagrams: 08/29/18 05:20 08/29/18 03:30 Phys Exam - Physical Examination HEENT: PERRLA, moist MMs Neck: no JVD, supple Respiratory: no wheezing, no rales Cardiovascular: RRR, no significant murmur Gastrointestinal: soft, positive bowel sounds Musculoskeletal: no edema, pulses present Neurological: non-focal, moves all 4 limbs Psychiatric: normal affect, A&O x 3 Dx/Plan (1) Pancreatic cancer metastasized to liver Code(s): C25.9 - MALIGNANT NEOPLASM OF PANCREAS, UNSPECIFIED; C78.7 - SECONDARY MALIG NEOPLASM OF LIVER AND INTRAHEPATIC BILE DUCT Status: Acute (2) Coagulopathy Status: Acute (3) MARLEY (acute kidney injury) Code(s): N17.9 - ACUTE KIDNEY FAILURE, UNSPECIFIED Status: Acute (4) Anasarca Code(s): R60.1 - GENERALIZED EDEMA Status: Acute Comment: resolving (5) Schizoaffective disorder Code(s): F25.9 - SCHIZOAFFECTIVE DISORDER, UNSPECIFIED Status: Chronic Qualifiers: Schizoaffective disorder type: unspecified Qualified Code(s): F25.9 - Schizoaffective disorder, unspecified (6) Dehydration Code(s): E86.0 - DEHYDRATION Status: Resolved (7) FTT (failure to thrive) in adult Status: Acute (8) Physical deconditioning Code(s): R53.81 - OTHER MALAISE Status: Acute (9) Dyslipidemia Code(s): E78.5 - HYPERLIPIDEMIA, UNSPECIFIED Status: Chronic (10) BPH (benign prostatic hyperplasia) Code(s): N40.0 - BENIGN PROSTATIC HYPERPLASIA WITHOUT LOWER URINRY TRACT SYMP Status: Chronic Qualifiers: Lower urinary tract symptom presence: symptoms absent Qualified Code(s): N40.0 - Benign prostatic hyperplasia without lower urinary tract symptoms - Plan awaiting [place] -: may dc anytime if above is ready -: poor prognosis, not a candidate for palliative chemo now -: increase flomax to bid, dc iv fluids, d/w -: on abilify, ultram, morphine prn * . d/w brother and patient at bedside. Review of Systems - Medications/Allergies Allergies/Adverse Reactions: Allergies Allergy/AdvReac Type Severity Reaction Status Date / Time No Known Allergies Allergy Verified 07/21/18 15:34 Medications: Current Medications Acetaminophen (Tylenol) 650 mg PO Q8H PRN PRN Reason: Headache/Fever/Mild Pain (1-3) Last Admin: 08/28/18 05:59 Dose: 650 mg Aripiprazole (Abilify) 30 mg PO QAM [facility] Last Admin: 08/29/18 08:33 Dose: 30 mg Gabapentin (Neurontin) 300 mg PO BID [facility] Last Admin: 08/29/18 08:33 Dose: 300 mg Guaifenesin/Dextromethorphan (Robitussin Dm) 15 ml PO Q4H PRN PRN Reason: Cough Sodium Chloride (Normal Saline 0.9%) 1,000 mls @ 125 mls/hr IV .Q8H [facility] Last Admin: 08/29/18 11:54 Dose: Not Given Morphine Sulfate (Morphine) 2 mg SLOW IVP Q4H PRN PRN Reason: Moderate Pain (4-6) Morphine Sulfate (Morphine) 4 mg SLOW IVP Q4H PRN PRN Reason: Moderate to Severe Pain (6-10) Last Admin: 08/29/18 08:34 Dose: 4 mg Ondansetron HCl (Zofran) 4 mg IVP Q6H PRN PRN Reason: Nausea/Vomiting Senna/Docusate Sodium (Senokot S) 2 tab PO BID PRN PRN Reason: Constipation Sodium Chloride (Flush - Normal Saline) 10 ml IVF PRN PRN PRN Reason: Saline Flush Tamsulosin HCl (Flomax) 0.4 mg PO BID [facility] Last Admin: 08/29/18 08:54 Dose: Not Given Tramadol HCl (Ultram) 50 mg PO Q6H PRN PRN Reason: Moderate Pain (4-6) Last Admin: 08/29/18 11:50 Dose: 50 mg
[2018-08-29 19:53] VITALS: TEMP 97.3
[2018-08-29 20:07] VITALS: BP 105/74
--- NOTE | 2018-08-30 14:10 | DIS ---
DATE OF ADMISSION: 08/25/2018 DATE OF DISCHARGE: 08/29/2018 DISCHARGE DISPOSITION: [facility]. PRIMARY DISCHARGE DIAGNOSES: Advanced pancreatic cancer for comfort care; acute kidney injury with elevated LFTs all secondary to pancreatic cancer; coagulopathy; schizoaffective disorder; severe dehydration on arrival, resolving; failure to thrive; deconditioning; dyslipidemia; and benign prostatic hypertrophy. PROCEDURES DONE DURING HOSPITALIZATION: Had a white count of 16 on the day of admission with H and H of 15 and 49, platelet count 153, MCV was 92. INR 14.5, PT 105, PTT 56. Total bilirubin 8.4, direct bilirubin 6.2, AST 181, ALT 66, alkaline phosphatase 363, albumin 3.1, BUN 68, creatinine 2.4 on admission, discharge BUN 64, creatinine 1.89 on the day of discharge, serum bicarb 22. INPATIENT CONSULT: Dr. Vargas from Nephrology; Ivon Merry Mobley/Jesus Angeles for Oncology. DISCHARGE MEDICATIONS: 1. Flomax 0.4 mg p.o. twice daily. 2. Ultram p.r.n. for pain. 3. Omeprazole 20 mg p.o. daily. 4. Abilify 30 mg p.o. daily. 5. Gabapentin 300 mg p.o. three times daily. 6. Multivitamin one tablet once daily. ALLERGIES: NO KNOWN DRUG ALLERGIES. DISCHARGE PLAN: The patient is being discharged to [facility] in spring. BRIEF COURSE DURING HOSPITALIZATION: The patient initially got admitted on the after he was brought by his brother for severe deconditioning. The patient was found to have had acute kidney injury, elevated liver enzymes, dehydration, and acute metabolic encephalopathy and coagulopathy. He has known history of pancreatic cancer stage IV and was for palliative chemo to be commenced in the following week of admission here. He had elevated creatinine of 2.4 and elevated LFTs with coagulopathy on admission. He was gently hydrated during his stay here. The patient had consultation with Dr. Vargas for Nephrology and Dr. Jesus Angeles for Oncology. Multiple conversations were held with the patient and his brother, who is also power of business attorney, Mr. Sundeep Magallon regarding poor prognosis and him not being a candidate even for palliative chemotherapy. He has had some improvement in his creatinine and his dehydration is resolved. The patient is tolerating solid food. He is hemodynamically stable at the time of discharge. The brother wanted him closer to him where he lives in [place], [place]. His placement has been arranged this morning. The patient and brother agreed for do not attempt to resuscitation. His overall prognosis is poor. The patient and his brother are clearly aware of it. A total of 37 minutes was spent on discharge plan. Please see a [id number] documentation for the day of discharge on [facility]. Job ID: [id number] [id number]
== END 2018-08-29 23:31 | DRG 682 ==
LOC: ERS 15:07 → T4-A 17:34
PROVIDERS: ADMIT Internal Medicine; ATTEND Internal Medicine
PROC: 3E0234Z Introduction of Serum, Toxoid and Vaccine into Muscle, Percutaneous Approach (ICD-10-PCS; principal; 2018-08-26)
DX: N17.9 Acute kidney failure, unspecified (principal); G93.41 Metabolic encephalopathy; K83.1 Obstruction of bile duct; C25.9 Malignant neoplasm of pancreas, unspecified; C78.7 Secondary malignant neoplasm of liver and intrahepatic bile duct; D68.9 Coagulation defect, unspecified; Z66 Do not resuscitate; E86.0 Dehydration; I10 Essential (primary) hypertension; Z86.711 Personal history of pulmonary embolism; Z79.01 Long term (current) use of anticoagulants; Z79.1 Long term (current) use of non-steroidal anti-inflammatories (NSAID); Z79.899 Other long term (current) drug therapy; R60.1 Generalized edema; E78.5 Hyperlipidemia, unspecified; N40.0 Benign prostatic hyperplasia without lower urinary tract symptoms; R63.4 Abnormal weight loss; Z68.26 Body mass index [BMI] 26.0-26.9, adult; F25.9 Schizoaffective disorder, unspecified; Z72.89 Other problems related to lifestyle; R62.7 Adult failure to thrive; R53.81 Other malaise; B19.20 Unspecified viral hepatitis C without hepatic coma; Z87.891 Personal history of nicotine dependence; K21.0 Gastro-esophageal reflux disease with esophagitis; M19.90 Unspecified osteoarthritis, unspecified site; Z23 Encounter for immunization
CPT/HCPCS: 36415; 71045; 80048; 80053; 80076; 82570; 85025; 85610; 85730; 90471; 90670; 93005; 96360; G0009; J1642; J1650; J1885; J2270; P9047